=== PATIENT | male | born 1950 | race Caucasian/White ===

== ENCOUNTER 2022-01-20 22:36 | Outpatient (CLI) | payer MEDICARE, BC, SELFPAY | END 2022-01-20 22:37 | disposition home or self-care (01) | LOC: AMB 01-21 10:19 | PROVIDERS: PCP Family Medicine; Visit Provider Family Medicine | DX: S11.94XA Puncture wound with foreign body of unspecified part of neck, initial encounter (principal); X58.XXXA Exposure to other specified factors, initial encounter; Y93.9 Activity, unspecified; Y92.009 Unspecified place in unspecified non-institutional (private) residence as the place of occurrence of the external cause | CPT/HCPCS: A0425; A0433 ==

== ENCOUNTER 2022-01-20 23:38 | Emergency (ER) | payer MEDICARE, BC, SELFPAY ==
[2022-01-20 23:41] VITALS: BP 84/59; PULSE 117; RESP 12; TEMP 35.6; O2SAT 79
[2022-01-20 23:45] VITALS: BP 84/59; PULSE 117; O2SAT 76
--- NOTE | 2022-01-20 23:45 | ED.NURSE ---
Pt arrives by EMS intubated, on EMS vent. IO in L tibia, 18G IV in R wrist. Pt transitioned to ED vent, pt remains on EMS cot. Pt pants and underwear cut for exposure.
[2022-01-20 23:50] VITALS: BP 87/52; PULSE 116; O2SAT 80
[2022-01-20] MEDS: 0.9 % SODIUM CHLORIDE 1000 ml 1,000 ML IV ×2 (23:50)
--- NOTE | 2022-01-20 23:50 | ED.NURSE ---
18G IV started in L AC and 18G IV started in R AC. Blood drawn and given to lab.
[2022-01-20 23:55] VITALS: BP 97/54; PULSE 103; O2SAT 82
--- NOTE | 2022-01-20 23:55 | CRLHL7_ITS ---
For Patients: As a result of the Century Cures Act, medical imaging exams and procedure reports are released immediately into your electronic medical record. You may view this report before your referring provider. If you have questions, please contact your health care provider. INDICATION: ET tube placement. TECHNIQUE: Chest 1 view. COMPARISON: None. FINDINGS: Cardiovascular and mediastinum: Heart size and vasculature are normal in caliber and appearance. Endotracheal tube tip projects at the level of the catherine. Lungs and pleural spaces: Central perihilar interstitial opacities. No sign of pleural effusion. No pneumothorax. Bones and soft tissues: Right shoulder degenerative changes. IMPRESSION: 1. Endotracheal tube tip projects at the level of the catherine. Recommend retraction by at least 2 cm. 2. Central perihilar interstitial opacities, nonspecific may reflect atelectasis or edema. Dictated by Ayad Herrera MD @ 01/21/2022 12:08:25 AM (Electronically Signed)
[2022-01-21] VITALS (12 sets, daily range): BP systolic 71–210; BP diastolic 46–136; PULSE 101–185; RESP 16; O2SAT 83–97
[2022-01-21] MEDS: ROCURONIUM BROMIDE 10 MG/ML inj 100 MG IV (00:07)
--- NOTE | 2022-01-21 00:09 | ED.NURSE ---
16Fr rios placed, ~500mLs drained from rios bag. UA sent to lab.
[2022-01-21] MEDS: EPINEPHrine 0.1 MG/ML SYRINGE 1 MG IVP (00:15)
--- NOTE | 2022-01-21 00:15 | ED.NURSE ---
Pt BP trending downwards, MD Vogt verbal order for 1mg IV epi. Epi given.
--- NOTE | 2022-01-21 00:18 | ED.TRAUMA ---
HPI - Trauma General Chief Complaint: Major Trauma Stated Complaint: Fall,severe injury Time Seen by Provider: 01/21/22 00:18 Source: EMS Mode of arrival: EMS History of Present Illness HPI narrative: 71-year-old male presents intubated after RSI in the field for trauma. Patient's came home from [facility] to find him passed out, impaled on a kitchen cabinet. Cabinet hardware impaled in his anterior right neck area. 911 was called. EMS team arrives defined the patient of tended, but alive. They were able to remove him from of a cabinet door revealing a 3 in wide large gash in his anterior neck above his hyoid bone. Plan had been to divert to Trauma Center but patient's blood pressure is persistently hypotensive EN oxygen sats in the high 70s, diverting for stabilization through [address] Following initial trauma assessment, I was able to talk with family and they believe that he was home alone at the time of the incident. They think he may have choked as it seemed as though there was a potato near him the cabinet that he had pulled out was a sliding trash cabinet. They suspect that he may have choked and passed out, landing on the cabinet. It was a vertical type handle with about a 2 in overhang. reports that he does not take anticoagulants, he has no history of heart disease or clotting disorder. Normal mentation neurological function at baseline, no history of seizures. He does regularly drink alcohol but the drink that was in the living room did not smell of alcohol her family. EMS team reporting that the tube went in easy, 20 cm at the teeth, but has not had breath sounds on the left and oxygen sats are not rising as expected. He has an IO line in the left tibia and a peripheral IV in the right arm, he was given ketamine and rocuronium in the field. They states that his past medical history is benign except hypertension. He takes 2 unknown antihypertensives. No anticoagulants. No recent surgeries. Exam Narrative: Exam Narrative: Please note that this is an extremely limited exam as the patient's condition clearly warrants stabilization only rather than investigative strategies. Arrival to a hypotensive, tachycardic, hypoxic intubated man. He has a large gash of 3 inches in his anterior right neck, above the hyoid bone. It is bleeding slightly but not significantly. He has decreased breath sounds in the left chest but symmetric rise and fall on the ventilator. The heart has regular rate rhythm and I can hear S1 and S2 breath sounds vaguely over the ventilator, cannot distinguish murmurs. The abdomen seems nondistended. He is paralyzed does not move his extremities but I do not see any obvious trauma to the extremities. He is in no condition to examine his back and therefore this is deferred. Genitals are briefly observed while nursing team is placing catheter and appear grossly normal. Remainder of exam is deferred due to deteriorating clinical condition and need for emergent transfer. Decision is made to not perform CT scan of the neck as there is obviously a significant soft tissue and airway injury that is causing clinical deterioration. I do not have a way to stop or control this other than transfer. Const: Vital Signs, click to edit/add: Vital Signs - 24 hr 01/21/22 00:05 Pulse Rate [Left] 106 H Respiratory Rate 16 Blood Pressure [Le ft Upper Arm] 94/49 L Pulse Oximetry 85 L Oxygen Delivery Me thod Intubated Course Course Hospital Course: Initial survey, O2 sats were 78%, with intubated patient and blood pressures 70s over 40s upon arrival. Appears and intubated man with a large horizontal gash to the right neck area not using much blood. No neurological function noted. Decreased breath sounds on the left side. Based on the mechanism of injury, this is not a patient to stay at [facility]. And oz to the team right away and do not recommend deferring transport to obtain CT imaging or draw labs. We did elect to get a chest x-ray to determine tube placement especially because of his low sat levels and poor ventilation on the left. I immediately began calling for transport, requesting EMS team not leave which they were agreeable to. I spent 7 minutes total contacting [facility], unfortunately they are not able to accept patient due to availability. They do not have surgical ICU space which this patient will certainly need for recovery. I ended that call 11:50 p.m.. I immediately began calling [facility]. Through total of 12 minutes on the phone, I was able to gain acceptance for transfer . While I was on the phone with [facility], Dr. Vogt arrived for his shift. He took over patient management while I completed transfer paperwork and then went to speak with the family. When I come back in after speaking with the family, informed them that the family is not interested in seeing him prior to transport. Team has placed an additional IV line in the left side he has normal saline running through L3, he has been given additional doses of rocuronium and remains paralyzed and sedated. O2 sats are ranging between the low to high 80s, blood pressure had climbed into the high 90s over 50s but has dropped again to the 80s over 40s, here Dr. Vogt ordering epinephrine. Will hand over management at of 0008 a.m.. I did go look at the chest x-ray and there is a significantly widened mediastinum as well as cardiomegaly. I do not see a left-sided pneumothorax but I do see significant compression of the left lung. This is not an effusion, I suspect that this is bleeding from the neck and throat area into the mediastinum, I recommend emergent transfer. We should not delay additional exam, imaging or workup to do so. Team is in agreement. They are in the process of actively packing the patient for transport. Vital Signs Vital signs: Initial Vital Signs Pulse Rate 106 H 01/21/22 00:05 Respiratory Rate 16 01/21/22 00:05 Blood Pressure 94/49 L 01/21/22 00:05 Blood Pressure Mean 64 01/21/22 00:05 Pulse Oximetry 85 L 01/21/22 00:05 Oxygen Delivery Method 01/21/22 00:05 Vital Signs Pulse Rate 106 H 01/21/22 00:05 Respiratory Rate 16 01/21/22 00:05 Blood Pressure 94/49 L 01/21/22 00:05 Pulse Oximetry 85 L 01/21/22 00:05 Oxygen Delivery Method 01/21/22 00:05 Pulse Rate 106 H 01/21/22 00:05 Respiratory Rate 16 01/21/22 00:05 Blood Pressure 94/49 L 01/21/22 00:05 Pulse Oximetry 85 L 01/21/22 00:05 Oxygen Delivery Method 01/21/22 00:05 MDM - Trauma MDM Narrative Medical decision making narrative: 35 minutes spent in critical care time prior to hand over to exclusive care from Dr. Vogt. Discharge Plan Discharge Clinical Impression: Traumatic injury of neck, Traumatic mediastinal hematoma, Airway trauma Follow Up/Referrals: Jono Almonte MD [Primary Care Provider] -
--- NOTE | 2022-01-21 00:26 | ED.NURSE ---
MD Vogt attempting to staple wound on pt's neck. 4 brandon placed in wound. Wound lightly covered with gauze to absorb drainage.
--- NOTE | 2022-01-21 00:33 | ED.NURSE ---
Pt leaves ED via EMS.
--- NOTE | 2022-01-21 00:51 | ED.NURSE ---
Report called to [facility] ED RN.
[2022-01-21 01:15] LABS: Basophils Percent Auto 0.2 % (0.0-3.0); Hematocrit 48.6 % (37.0-53.0); Hemoglobin* 15.8 gm/dL (13.5-17.5); Immature Granulocytes Pct Auto 0.5 %; Lymphocytes Percent Auto 7.6 % (20-44); Mean Corpuscular HGB Conc 33 gm/dL (32-36); Mean Corpuscular Hemoglobin 29 pg (26-34); Mean Corpuscular Volume 90 fL (80-100); Monocytes Percent Auto 4.4 % (0.0-11.0); Neutrophils Percent Auto 87.3 % (42.0-72.0); Platelet Count* 233 K/uL (140-440); RDW Coefficient of Variation % 12.9 % (11.5-15.5); White Blood Count* 13.08 K/uL (4.50-11.00)
[2022-01-21 01:24] LABS: Slide Review Reflex No
[2022-01-21 01:25] LABS: Chloride* 106 mmol/L (96-114)
[2022-01-21 01:26] LABS: Potassium* 3.2 mmol/L (3.6-5.1); Sodium* 143 mmol/L (135-149)
[2022-01-21 01:28] LABS: Carbon Dioxide* 17 mmol/L (20-32); Creatinine* 1.1 mg/dL (0.5-1.5); Estimated Glomerular Filt Rate 72 ml/min
[2022-01-21 01:29] LABS: Blood Urea Nitrogen* 23 mg/dL (7-30); Calcium* 8.4 mg/dL (8.4-10.6); Glucose* 141 mg/dL (60-115)
[2022-01-21 01:30] LABS: Appearance Urine Clear (Clear); Bilirubin Urine Negative (Negative); Blood Urine 2+ (Negative); Color Urine Yellow (Yellow); Glucose Urine Trace (Negative); Ketones Urine 1+ (Negative); Leukocyte Esterase Urine Negative (Negative); Nitrite Urine Negative (Negative); Protein Urine 1+ (Negative); Urobilinogen Urine 0.2 (0.2-1.0)
[2022-01-21 01:34] LABS: RBC Urine 0-2 (0-2); Squamous Epithelial Cell Urine Few (None-Few); WBC Urine 0-2 (0-5)
== END 2022-01-21 00:40 | disposition short-term general hospital (02) ==
PROVIDERS: Family Medicine; Emergency Provider Family Medicine; PCP Family Medicine
DX: S11.93XA Puncture wound without foreign body of unspecified part of neck, initial encounter (principal); S27.892A Contusion of other specified intrathoracic organs, initial encounter; J98.8 Other specified respiratory disorders
CPT/HCPCS: 12001; 31500; 36415; 51702; 71045; 80048; 81003; 81015; 85025; 96361; 96374; 96375; 99283; 99291; G0390; J0171; J7030; J7050

== ENCOUNTER 2022-01-21 00:38 | Outpatient (CLI) | payer MEDICARE, BC, SELFPAY | END 2022-01-21 00:39 | disposition home or self-care (01) | LOC: AMB 02-08 09:16 | PROVIDERS: PCP Family Medicine; Visit Provider Family Medicine | DX: R06.09 Other forms of dyspnea (principal) | CPT/HCPCS: A0425; A0434 ==

== ENCOUNTER 2022-04-07 09:55 | Outpatient (CLI) | payer MEDICARE, BC, SELFPAY ==
--- NOTE | 2022-04-07 10:15 | CRLHL7_ITS ---
For Patients: As a result of the Century Cures Act, medical imaging exams and procedure reports are released immediately into your electronic medical record. You may view this report before your referring provider. If you have questions, please contact your health care provider. INDICATION: History of neck injury. Cervical spine fusion. History of aspiration. Percutaneous tube feeds. Follow-up. TECHNIQUE: Recorded video swallow performed in conjunction with speech therapy. FINDINGS: The patient tolerated all preparations of barium fairly well. There was no aspiration or penetration. No silent aspiration. Mild pooling of barium in the valleculae. Please see detailed notes from speech therapy. 2 minutes 6 seconds fluoroscopy time utilized. IMPRESSION: No evidence for aspiration or penetration. Dictated by Shahid Muniz MD @ 04/07/2022 11:07:53 AM (Electronically Signed)
--- NOTE | 2022-04-07 13:00 | SLP.EVAL ---
Dr. Almonte Please review, sign and return Alison will need some guidance for decreasing tube feedings and eventual removal of tube. Thank you Yenny Wright, [employer] Vidhial [employer] Eval Start: 04/07/22 12:27 Freq: Status: Active Protocol: Document 04/07/22 12:27 Candace (Rec: 04/07/22 12:59 HJS [id number]) E-signed By Yenny Wright, SHAUN, [employer] System Review History & Reason For Referral Type of Speech Evaluation Modified Barium Swallow Evaluation Rehabilitation Order Evaluation Date of Order 03/23/22 Reason for Referral difficulty swallowing Treatment Diagnosis dysphagia Hearing Information Hearing Status Wears bilateral hearing aids Patient Orientation Orientation & Mental Status adequate [employer] Initial Assessment/POC Subjective Information Subjective/Pain Comment Patient independently ambulated to the xray suite. His is with him. Caregiver's Name Jacqueline - Assessment & Impression Assessment/Impression Patient is a 72 year old male with referred for a follow-up modified barium swallow study. He has been coming to this therapist for outpatient speech therapy to help improve swallow function. In Jan 2022 , he apparently choked and passed out at home and impaled himself on a cabinet door handle. He was taken to [facility] for emergency care and then for acute rehab. While there he had a feeding tube placed as he was not able to swallow without aspiration . His last video swallow at [facility] was 02-20-22 and it revealed silent aspiration on all consistencies. He has been completing swallowing exercises since then and feels that his swallow has improved . ORAL MOTOR FUNCTION AND DENTITION Both are adequate for eating. MILDLY (NECTAR) THICK LIQUID Patient given a teaspoon of mildly thick liquid. He was able to control the bolus and swallow. There was no penetration or aspiration. Slightly more than a coating remained in his vallecula after the swallow. THIN LIQUID Patient first given a teaspoon of thin liquid. He was able to swallow without penetration or aspiration. Minimal residue in the vallecula after swallowing. PUREE Patient given a teaspoon of puree. He was able to swallow without penetration or aspiration but had a mild-mod amount of vallecular residue after the swallow. He was able to mostly clear with 2-3 subsequent swallows and also with a small sip of thin liquid. MUFFIN AND COOKIE WITH BARIUM PUREE Patient given separate trials of muffin and cookie each mixed with barium puree. He was able to adequately chew and swallow. There was no penetration or aspiration with either consistency. Moderate vallecular residue after the swallow which mostly cleared with subsequent swallows and sip of liquid. IMPRESSIONS AND RECOMMENDATIONS Patient exhibits a timely swallow, no penetration or aspiration on any consistency but he did have mild-moderate vallecular residue as the consistencies got thicker. Recommend patient start to eat some soft foods and thin liquid in small amounts (small overall quantity and small bites), swallowing 2-3 times after each bite, alternate solids and liquids. Have recommended that he record food and quantities. 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 Recommend he continue with this. He has another appointment with me next . He will need to have guidance on how and when to decrease his tube feeding and then eventually when it will be appropriate for removal. Therapist Signature & License # I Certify That Therapy Services Provided Therapist Signature & License Number Yenny Wright, [facility]-[employer], # [id number] Physician Signature Signature of Physician Indicates Medically Needed Services Physician Signature & Date Required Please Sign/Date Here Speech/Language Pathology Billing Units Billing Units Eval Swallow Motion Fluoro 1
== END 2022-04-07 09:56 | disposition home or self-care (01) ==
LOC: RAD 09:57
PROVIDERS: PCP Family Medicine; Visit Provider Family Medicine
DX: R13.10 Dysphagia, unspecified (principal)
CPT/HCPCS: 74230; 92611

== ENCOUNTER 2022-10-19 07:58 | Outpatient (CLI) | payer MEDICARE, BC, SELFPAY ==
--- NOTE | 2022-10-19 08:15 | CRLHL7_ITS ---
For Patients: As a result of the Century Cures Act, medical imaging exams and procedure reports are released immediately into your electronic medical record. You may view this report before your referring provider. If you have questions, please contact your health care provider. INDICATION: Difficulty swallowing TECHNIQUE: Modified barium swallow. Fluoroscopic time 1.2 minutes. COMPARISON: 04/07/2022 FINDINGS/IMPRESSION: Postop changes cervical spine fusion. Swallowing mechanism appears within normal limits. No episodes of penetration or aspiration. Mild diminished transit with more solid barium through the oropharynx which improves with right neck turn. Dictated by Faheem Goldman MD @ 10/19/2022 8:36:47 AM (Electronically Signed)
== END 2022-10-19 07:59 | disposition home or self-care (01) ==
LOC: RAD 08:01
PROVIDERS: PCP Family Medicine; Visit Provider Physician Assistant
DX: R13.10 Dysphagia, unspecified (principal); S09.93XA Unspecified injury of face, initial encounter
CPT/HCPCS: 74230; 92611

== ENCOUNTER 2022-11-15 09:00 | Outpatient (RCR) | payer MEDICARE, BC, SELFPAY | END 2023-03-15 23:59 | disposition home or self-care (01) | PROVIDERS: PCP Family Medicine; Visit Provider Physical Medicine & Rehabilitation | DX: T14.8XXD Other injury of unspecified body region, subsequent encounter (principal); Z51.89 Encounter for other specified aftercare | CPT/HCPCS: 92523; 92526; 92610; 97110; 97112; 97116; 97140; 97163; 97166; 97530; X5282 ==

== ENCOUNTER 2023-05-09 08:53 | Outpatient (CLI) | payer MEDICARE, BC, SELFPAY | END 2023-05-09 08:54 | disposition home or self-care (01) | LOC: LKVREF 08:55 | PROVIDERS: PCP Family Medicine; Visit Provider Family Medicine | DX: I10 Essential (primary) hypertension (principal) | CPT/HCPCS: 80048 ==

== ENCOUNTER 2024-03-20 10:49 | Outpatient (CLI) | payer MEDICARE, BC, SELFPAY | END 2024-03-20 10:50 | disposition home or self-care (01) | LOC: LKVREF 10:52 | PROVIDERS: PCP Family Medicine; Visit Provider Family Medicine | DX: Z13.6 Encounter for screening for cardiovascular disorders (principal) | CPT/HCPCS: 80061 ==

== ENCOUNTER 2025-03-10 09:55 | Outpatient (CLI) | payer MEDICARE, BC, SELFPAY | END 2025-03-10 09:56 | disposition home or self-care (01) | PROVIDERS: PCP Family Medicine; Visit Provider Family Medicine | DX: I10 Essential (primary) hypertension (principal); Z13.21 Encounter for screening for nutritional disorder | CPT/HCPCS: 80048; 82607 ==